=== PATIENT | female | born 1995 | race Caucasian/White ===

== ENCOUNTER 2023-08-02 12:41 | Outpatient (CLI) | payer BC, SELFPAY ==
[2023-08-02 13:29] LABS: Ur HCG Qualitative* Negative (Negative)
--- NOTE | 2023-08-02 14:33 | W.ANESCHARGE ---
Anesthesia Charges Start Date/Time Anesthesia Start Date: 08/02/23 Anesthesia Start Time: 13:32 Stop Date/Time Anesthesia Stop Date: 08/02/23 Anesthesia Stop Time: 13:59
== END 2023-08-02 12:42 | disposition home or self-care (01) ==
LOC: OP CLINIC 12:46
PROVIDERS: PCP Nurse Practitioner Family; Visit Provider Internal Medicine Gastroenterology
DX: R19.7 Diarrhea, unspecified (principal); K52.9 Noninfective gastroenteritis and colitis, unspecified
CPT/HCPCS: 00811; 45380; 81025; 88305; J2704